=== PATIENT | male | born 1965 | race Caucasian/White ===

== ENCOUNTER 2018-10-20 16:04 | Inpatient (IN) | payer SELFPAY ==
[2018-10-20] MEDS ORDERED: Sodium Chloride 0.9% 10 ML Syringe FLUSH PRN (17:02)
--- NOTE | 2018-10-20 17:24 | EDM.PDOC ---
ED HPI GENERAL MEDICAL PROBLEM - General Stated Complaint: LUMP ON SIDE Time Seen by Provider: 10/20/18 16:40 Source of Information: Reports: Patient History Limitations: Reports: No Limitations - History of Present Illness INITIAL COMMENTS - FREE TEXT/NARRATIVE: Patient comes in to the emergency department with complaint of right lower quadrant abdominal pain started approximately 3 days ago. Patient states that has progressively gotten worst localized to the right lower quadrant. It does radiate along the side. He states he does get nauseated however he has not vomited. He states it's difficult to lay flat her to stretch out due to the discomfort. He does not feel he has had a fever however he feels that he has had chills last couple days. Patient does not remember having any sort of surgical interventions on his appendix or abdominal cavity. He also denies any recent illnesses or infections. He also denies any urinary symptoms including urgency, frequency, discharge, or new sexual partners within last 60 days. Onset: Sudden Quality: Reports: Sharp, Stabbing Severity: Severe Improves with: Reports: Immobilization Worsens with: Reports: Movement Associated Symptoms: Reports: No Other Symptoms - Related Data Allergies Allergy/AdvReac Type Severity Reaction Status Date / Time No Known Allergies Allergy Verified 10/20/18 18:07 Home Meds: Home Meds . [No Known Home Meds] 10/20/18 [History] ED ROS GENERAL - Review of Systems Review Of Systems: See Below Constitutional: Reports: Decreased Appetite HEENT: Reports: No Symptoms Respiratory: Reports: No Symptoms Cardiovascular: Reports: No Symptoms GI/Abdominal: Reports: Abdominal Pain, Anorexia, Nausea. Denies: Melena, Vomiting : Reports: No Symptoms Musculoskeletal: Reports: No Symptoms Skin: Reports: No Symptoms Neurological: Reports: No Symptoms Psychiatric: Reports: No Symptoms Hematologic/Lymphatic: Reports: No Symptoms Immunologic: Reports: No Symptoms ED EXAM, GENERAL - Physical Exam Exam: See Below Exam Limited By: No Limitations General Appearance: Alert, WD/WN, Moderate Distress Neck: Normal Inspection, Supple, Non-Tender, Full Range of Motion Respiratory/Chest: No Respiratory Distress, Lungs Clear, Normal Breath Sounds, No Accessory Muscle Use, Chest Non-Tender Cardiovascular: Normal Peripheral Pulses, Regular Rate, Rhythm, No Edema GI/Abdominal: Distended, Guarding, Rebound, Tender Back Exam: Normal Inspection, Full Range of Motion Extremities: Normal Inspection, Normal Range of Motion, No Pedal Edema, Normal Capillary Refill Neurological: Alert, Oriented Psychiatric: Normal Affect, Normal Mood Skin Exam: Warm, Dry, Intact, Normal Color Course - Orders/Labs/Meds Orders: Active Orders 24 hr Category Date Time Status Sodium Chloride 0.9% [Saline Flush] Med 10/20/18 17:02 Active 10 ml FLUSH ASDIRECTED PRN Peripheral IV Insertion Adult [OM.PC] Stat Oth 10/20/18 17:01 Ordered Medication Orders Ketorolac Tromethamine (Toradol) 30 mg IM Q6H PRN PRN Reason: Pain (moderate 4-6) Ondansetron HCl (Zofran Odt) 4 mg PO Q6H PRN PRN Reason: nausea, able to take PO Sodium Chloride (Saline Flush) 10 ml FLUSH ASDIRECTED PRN PRN Reason: Keep Vein Open Labs: Laboratory Tests 10/20/18 10/20/18 10/20/18 Range/Units 17:05 17:13 17:13 WBC 11.2 H (4.0-10.0) x10^3/uL RBC 4.92 (4.5-6.0) x10^6/uL Hgb 15.0 (14.0-18.0) g/dL Hct 45.0 (40.0-52.0) % MCV 91.5 (78.0-93.0) fL MCH 30.5 (26.0-32.0) pg MCHC 33.3 (32.0-36.0) g/dL RDW Coeff of Katina 13.9 (10.0-15.0) % Plt Count 252 (130-400) x10^3/uL Neut % (Auto) 73.6 (50.0-80.0) % Lymph % (Auto) 17.0 L (25.0-50.0) % Nolan % (Auto) 6.9 (2.0-11.0) % Eos % (Auto) 2.2 (0.0-4.0) % Baso % (Auto) 0.3 (0.2-1.2) % Sodium 142 (136-145) mmol/L Potassium 3.9 (3.5-5.1) mmol/L Chloride 102 (98-107) mmol/L Carbon Dioxide 27 (21-32) mmol/L Anion Gap 16.9 (10-20) mmol/L BUN 18 (7-18) mg/dL Creatinine 1.1 (0.70-1.30) mg/dL Est Cr Clr Drug Dosing TNP Estimated GFR (MDRD) > 60 Glucose 86 (74-106) mg/dL Calcium 9.8 (8.5-10.1) mg/dL Corrected Calcium 9.72 (8.5-10.1) mg/dL Total Bilirubin 0.5 (0.2-1.0) mg/dL AST 16 (15-37) U/L ALT 16 (16-63) U/L Alkaline Phosphatase 110 (46-116) U/L Total Protein 7.8 (6.4-8.2) g/dL Albumin 4.1 (3.4-5.0) g/dL Globulin 3.7 Albumin/Globulin Ratio 1.11 Amylase 51 (25-115) U/L Lipase 105 (73-393) U/L Urine Color Yellow (YELLOW) Urine Appearance Clear (CLEAR) Urine pH 6.0 (5.0-8.0) Ur Specific [place] 1.010 Urine Protein Negative (NEGATIVE) mg/dL Urine Glucose (UA) Negative (NEGATIVE) mg/dL Urine Ketones Negative (NEGATIVE) mg/dL Urine Occult Blood Negative (NEGATIVE) Urine Nitrite Negative (NEGATIVE) Urine Bilirubin Negative (NEGATIVE) Urine Urobilinogen 1.0 (0.2) EU/dL Ur Leukocyte Esterase Negative (NEGATIVE) Meds: Medications Generic Name Dose Route Start Last Admin Trade Name Freq PRN Reason Stop Dose Admin Ketorolac Tromethamine 30 mg 10/20/18 19:58 Toradol IM Q6H PRN Pain (moderate 4-6) Ondansetron HCl 4 mg 10/20/18 19:58 Zofran Odt PO Q6H PRN nausea, able to take PO Sodium Chloride 10 ml 10/20/18 17:02 Saline Flush FLUSH ASDIRECTED PRN Keep Vein Open Discontinued Medications Generic Name Dose Route Start Last Admin Trade Name Freq PRN Reason Stop Dose Admin Ertapenem 1 gm 10/20/18 19:21 10/20/18 19:22 Invanz IVPUSH 10/20/18 19:22 1 gm STAT ONE Administration Hydromorphone HCl 0.5 mg 10/20/18 17:25 10/20/18 20:06 Dilaudid IVPUSH 10/20/18 17:26 Not Given ONETIME ONE Sodium Chloride 1,000 mls @ 1,000 mls/hr 10/20/18 17:26 10/20/18 19:19 Normal Saline IV 10/20/18 18:25 1,000 mls/hr ONETIME ONE Administration Ertapenem 1 gm/ Sodium 100 mls @ 200 mls/hr 10/20/18 19:15 10/20/18 20:07 Chloride IV Not Given Q24H HOWARD Iopamidol 100 ml 10/20/18 18:07 10/20/18 18:09 Isovue-300 (61%) IVPUSH 10/20/18 18:08 100 ml ONETIME ONE Administration Ketorolac Tromethamine 15 mg 10/20/18 19:03 10/20/18 19:16 Toradol IVPUSH 10/20/18 19:04 15 mg ONETIME ONE Administration Ondansetron HCl 4 mg 10/20/18 17:26 10/20/18 19:13 Zofran IVPUSH 10/20/18 17:27 4 mg ONETIME ONE Administration Departure - Departure Time of Disposition: 18:30 Disposition: Admitted As Inpatient 68 Condition: Good Clinical Impression: Colitis - Discharge Information *PRESCRIPTION DRUG MONITORING PROGRAM REVIEWED*: Not Applicable *COPY OF PRESCRIPTION DRUG MONITORING REPORT IN PATIENT SAMANTHA: Not Applicable - My Orders Last 24 Hours: My Active Orders 10/20/18 17:01 Peripheral IV Insertion Adult [OM.PC] Stat 10/20/18 17:02 Sodium Chloride 0.9% [Saline Flush] 10 ml FLUSH ASDIRECTED PRN - Assessment/Plan Last 24 Hours: My Active Orders 10/20/18 17:01 Peripheral IV Insertion Adult [OM.PC] Stat 10/20/18 17:02 Sodium Chloride 0.9% [Saline Flush] 10 ml FLUSH ASDIRECTED PRN Assessment:: 1. abdominal pain 2. Colitis Plan: 1. Labs completed in ER. Results reviewed with the pt 2. CT completed in ER. Results reveal colitis 3. Fluids and zofran given in the ER 4. Patient refusing pain medication initially. Will accept Toradol at 1900. 5. Consultation completed with Dr. Black who feels this patient can be managed by being admitted to acute care with Invanz. If not feeling better within the next 2-3 days it is advisable to send to higher level of care for further surgical management. 6. Pt is agreeable to be admitted. Zhou Navas is agreeable to accept care of the patient to acute care status.
[2018-10-20] MEDS ORDERED: HYDROmorphone 1 MG/ML Syringe IVPUSH ONE (17:25)
[2018-10-20] MEDS ORDERED: Sodium Chloride 0.9% 1,000 ML IV ONE (17:26)
[2018-10-20] MEDS ORDERED: Ondansetron 4 MG/2 ML SDV IVPUSH ONE (17:26)
[2018-10-20 17:39] LABS: ANION GAP 16.9 mmol/L (10-20); CHLORIDE,CL 102 mmol/L (98-107); SODIUM,NA 142 mmol/L (136-145)
[2018-10-20] MEDS ORDERED: Iopamidol 612 MG/ML 100 ML Bottle IVPUSH ONE (18:07)
--- NOTE | 2018-10-20 18:41 | CT ---
[id number] CT/CT Abdomen Pelvis W IV EXAM: CT Abdomen Pelvis W IV CLINICAL DATA: ABDOMEN PAIN. COMPARISON STUDY: None. FINDINGS: Lung bases are clear. Numerous too small to characterize hypodense lesions seen throughout the liver not specifically represent cysts. The spleen, gallbladder, pancreas, adrenal glands, and kidneys are unremarkable. The appendix is visualized and appears normal. There is circumferential thickening of the cecum and proximal ascending colon with surrounding fat stranding and a small amount of free fluid. No pneumoperitoneum or fluid collections are identified. The appendix is visualized and appears normal. Multiple prominent mesenteric lymph nodes especially within the right lower quadrant. Scattered changes of spondylosis the spine. No fracture or osseous lesion. IMPRESSION: 1. Extensive fat infiltration within the right lower quadrant. Additionally, there is a small amount of surrounding free fluid. There is circumferential fat stranding of the cecum and proximal ascending colon. The appendix is visualized and appears normal. These findings are most consistent with focal colitis. Surgical consultation is recommended. Raza Mcpherson DO 10/20/18 [id number] Thank you for allowing us to participate in the care of your patient.
[2018-10-20] MEDS ORDERED: Ketorolac 15 MG/ML SDV IVPUSH ONE (19:03)
[2018-10-20] MEDS ORDERED: Ertapenem 1 GM in Sodium Chloride 0.9% 100 ML IV SCH (19:15)
[2018-10-20] MEDS ORDERED: Ertapenem 1 GM Vial IVPUSH ONE (19:21)
[2018-10-20] MEDS ORDERED: Ketorolac 30 MG/ML SDV IM PRN (19:58)
[2018-10-20] MEDS ORDERED: Ondansetron 4 MG Tab.DIS PO PRN (19:58)
[2018-10-20] MEDS ORDERED: methylPREDNISolone Sodium Succinate 40 MG/1 ML SDV IVPUSH ONE (21:15)
[2018-10-21] MEDS: Sodium Chloride 0.9% 1,000 ML IV SCH ×4 (00:21→23:56)
[2018-10-21] MEDS: HYDROmorphone 1 MG/ML Syringe IVPUSH PRN (00:22)
[2018-10-21] MEDS: Ertapenem 1 GM in Sodium Chloride 0.9% 100 ML IV SCH (07:45)
[2018-10-21] MEDS: methylPREDNISolone Sodium Succinate 40 MG/1 ML SDV IVPUSH SCH (07:46)
[2018-10-21 08:43] LABS: CHLORIDE,CL 108 mmol/L (98-107); SODIUM,NA 143 mmol/L (136-145)
[2018-10-21 08:56] LABS: ANION GAP 15.4 mmol/L (10-20)
--- NOTE | 2018-10-21 12:03 | PCM.PN ---
- General Info Date of Service: 10/21/18 Admission Dx/Problem (Free Text): Acute onset Colitis Abd Pain Dehydration Subjective Update: Overall, patient states his is feeling much better. Continues to have exquisite pain in the RLQ on palpation. No fevers. No N/V/D. No chest pain or SOB. VSS. Ambulating independently. Offers no other specific complaints. Functional Status: Reports: Pain Controlled, Ambulating, Urinating. Denies: Tolerating Diet (NPO) Pain Score: 3 - Review of Systems General: Reports: Fever, Chills Pulmonary: Denies: Shortness of Breath, Cough Cardiovascular: Denies: Chest Pain, Palpitations Gastrointestinal: Reports: Abdominal Pain (RLQ). Denies: Nausea, Vomiting Skin: Reports: No Symptoms Neurological: Reports: No Symptoms - Patient Data Vitals - Most Recent: Last Vital Signs Temp 36.6 C 10/21/18 10:00 Pulse 84 10/21/18 10:00 Resp 20 10/21/18 10:00 BP 113/57 L 10/21/18 10:00 Pulse Ox 97 10/21/18 10:00 Weight - Most Recent: 88.088 kg Lab Results Last 24 Hours: Laboratory Results - last 24 hr 10/20/18 10/20/18 10/20/18 Range/Units 17:05 17:13 17:13 WBC 11.2 H (4.0-10.0) x10^3/uL RBC 4.92 (4.5-6.0) x10^6/uL Hgb 15.0 (14.0-18.0) g/dL Hct 45.0 (40.0-52.0) % MCV 91.5 (78.0-93.0) fL MCH 30.5 (26.0-32.0) pg MCHC 33.3 (32.0-36.0) g/dL RDW Coeff of Katina 13.9 (10.0-15.0) % Plt Count 252 (130-400) x10^3/uL Neut % (Auto) 73.6 (50.0-80.0) % Lymph % (Auto) 17.0 L (25.0-50.0) % Martin % (Auto) 6.9 (2.0-11.0) % Eos % (Auto) 2.2 (0.0-4.0) % Baso % (Auto) 0.3 (0.2-1.2) % Sodium 142 (136-145) mmol/L Potassium 3.9 (3.5-5.1) mmol/L Chloride 102 (98-107) mmol/L Carbon Dioxide 27 (21-32) mmol/L Anion Gap 16.9 (10-20) mmol/L BUN 18 (7-18) mg/dL Creatinine 1.1 (0.70-1.30) mg/dL Est Cr Clr Drug Dosing TNP Estimated GFR (MDRD) > 60 Glucose 86 (74-106) mg/dL Calcium 9.8 (8.5-10.1) mg/dL Corrected Calcium 9.72 (8.5-10.1) mg/dL Total Bilirubin 0.5 (0.2-1.0) mg/dL AST 16 (15-37) U/L ALT 16 (16-63) U/L Alkaline Phosphatase 110 (46-116) U/L Total Protein 7.8 (6.4-8.2) g/dL Albumin 4.1 (3.4-5.0) g/dL Globulin 3.7 Albumin/Globulin Ratio 1.11 Amylase 51 (25-115) U/L Lipase 105 (73-393) U/L Urine Color Yellow (YELLOW) Urine Appearance Clear (CLEAR) Urine pH 6.0 (5.0-8.0) Ur Specific [place] 1.010 Urine Protein Negative (NEGATIVE) mg/dL Urine Glucose (UA) Negative (NEGATIVE) mg/dL Urine Ketones Negative (NEGATIVE) mg/dL Urine Occult Blood Negative (NEGATIVE) Urine Nitrite Negative (NEGATIVE) Urine Bilirubin Negative (NEGATIVE) Urine Urobilinogen 1.0 (0.2) EU/dL Ur Leukocyte Esterase Negative (NEGATIVE) 10/21/18 10/21/18 Range/Units 07:21 07:21 WBC 9.2 (4.0-10.0) x10^3/uL RBC 4.33 L (4.5-6.0) x10^6/uL Hgb 13.1 L D (14.0-18.0) g/dL Hct 40.3 (40.0-52.0) % MCV 93.1 H (78.0-93.0) fL MCH 30.3 (26.0-32.0) pg MCHC 32.5 (32.0-36.0) g/dL RDW Coeff of Katina 13.8 (10.0-15.0) % Plt Count 250 (130-400) x10^3/uL Neut % (Auto) 88.9 H (50.0-80.0) % Lymph % (Auto) 9.0 L (25.0-50.0) % Martin % (Auto) 1.9 L (2.0-11.0) % Eos % (Auto) 0.1 (0.0-4.0) % Baso % (Auto) 0.1 L (0.2-1.2) % Sodium 143 (136-145) mmol/L Potassium 4.4 (3.5-5.1) mmol/L Chloride 108 H (98-107) mmol/L Carbon Dioxide 24 (21-32) mmol/L Anion Gap 15.4 (10-20) mmol/L BUN 19 H (7-18) mg/dL Creatinine 1.0 (0.70-1.30) mg/dL Est Cr Clr Drug Dosing 101.61 Estimated GFR (MDRD) > 60 Glucose 112 H (74-106) mg/dL Calcium 8.8 (8.5-10.1) mg/dL Corrected Calcium (8.5-10.1) mg/dL Total Bilirubin (0.2-1.0) mg/dL AST (15-37) U/L ALT (16-63) U/L Alkaline Phosphatase (46-116) U/L Total Protein (6.4-8.2) g/dL Albumin (3.4-5.0) g/dL Globulin Albumin/Globulin Ratio Amylase (25-115) U/L Lipase (73-393) U/L Urine Color (YELLOW) Urine Appearance (CLEAR) Urine pH (5.0-8.0) Ur Specific [place] Urine Protein (NEGATIVE) mg/dL Urine Glucose (UA) (NEGATIVE) mg/dL Urine Ketones (NEGATIVE) mg/dL Urine Occult Blood (NEGATIVE) Urine Nitrite (NEGATIVE) Urine Bilirubin (NEGATIVE) Urine Urobilinogen (0.2) EU/dL Ur Leukocyte Esterase (NEGATIVE) Med Orders - Current: Current Medications Hydromorphone HCl (Dilaudid) 0.5 mg IVPUSH Q4H PRN PRN Reason: Pain Last Admin: 10/21/18 00:22 Dose: 0.5 mg Sodium Chloride (Normal Saline) 1,000 mls @ 125 mls/hr IV ASDIRECTED HOWARD Last Admin: 10/21/18 07:49 Dose: 125 mls/hr Ertapenem 1 gm/ Sodium (Chloride) 100 mls @ 200 mls/hr IV Q24H [facility] Last Admin: 10/21/18 07:45 Dose: 200 mls/hr Ketorolac Tromethamine (Toradol) 30 mg IM Q6H PRN PRN Reason: Pain (moderate 4-6) Methylprednisolone Sodium Succinate (Solu-Medrol) 40 mg IVPUSH DAILY [facility] Last Admin: 10/21/18 07:46 Dose: 40 mg Ondansetron HCl (Zofran Odt) 4 mg PO Q6H PRN PRN Reason: nausea, able to take PO Sodium Chloride (Saline Flush) 10 ml FLUSH ASDIRECTED PRN PRN Reason: Keep Vein Open Last Admin: 10/21/18 00:28 Dose: 10 ml Discontinued Medications Ertapenem (Invanz) 1 gm IVPUSH STAT ONE Stop: 10/20/18 19:22 Last Admin: 10/20/18 19:22 Dose: 1 gm Hydromorphone HCl (Dilaudid) 0.5 mg IVPUSH ONETIME ONE Stop: 10/20/18 17:26 Last Admin: 10/20/18 20:06 Dose: Not Given Sodium Chloride (Normal Saline) 1,000 mls @ 1,000 mls/hr IV ONETIME ONE Stop: 10/20/18 18:25 Last Admin: 10/20/18 19:19 Dose: 1,000 mls/hr Ertapenem 1 gm/ Sodium (Chloride) 100 mls @ 200 mls/hr IV Q24H [facility] Last Admin: 10/20/18 20:07 Dose: Not Given Iopamidol (Isovue-300 (61%)) 100 ml IVPUSH ONETIME ONE Stop: 10/20/18 18:08 Last Admin: 10/20/18 18:09 Dose: 100 ml Ketorolac Tromethamine (Toradol) 15 mg IVPUSH ONETIME ONE Stop: 10/20/18 19:04 Last Admin: 10/20/18 19:16 Dose: 15 mg Methylprednisolone Sodium Succinate (Solu-Medrol) 40 mg IVPUSH ONETIME ONE Stop: 10/20/18 21:16 Last Admin: 10/21/18 00:22 Dose: 40 mg Ondansetron HCl (Zofran) 4 mg IVPUSH ONETIME ONE Stop: 10/20/18 17:27 Last Admin: 10/20/18 19:13 Dose: 4 mg - Exam Quality Assessment: No: DVT Prophylaxis, Skin Breakdown General: Alert, Oriented, Cooperative, No Acute Distress Lungs: Clear to Auscultation, Normal Respiratory Effort Cardiovascular: Regular Rate, Regular Rhythm GI/Abdominal Exam: Guarding, Rigid, Tender (RLQ), Abnormal Bowel Sounds ( Hyperactive RLQ) Peripheral Pulses: 2+: Radial (L), Radial (R) Skin: Warm, Dry, Intact Neurological: No New Focal Deficit - Problem List Review Problem List Initiated/Reviewed/Updated: Yes - My Orders Last 24 Hours: My Active Orders 10/20/18 21:00 HYDROmorphone [Dilaudid] 0.5 mg IVPUSH Q4H PRN 10/20/18 21:15 Sodium Chloride 0.9% [Normal Saline] 1,000 ml IV ASDIRECTED 10/21/18 08:00 methylPREDNISolone Sod Succ [Solu-MEDROL] 40 mg IVPUSH DAILY 10/21/18 Dinner Advance Diet Instructions [DIET] - Assessment Assessment:: New onset Colitis Abdominal Pain - Plan Plan:: 53 yo male patient with no past medical history was admitted acute yesterday for new onset colitis, abdominal pain, and small free fluid around liver. Dr. Black was consulted by ER provider. Dr. Black recommend admission to acute for pain control, IV abx therapy, and close monitoring. - Continue IV abx - Pain control with Dilaudid - Cont to ambulate - Advance diet as tolerated - SoluMedrol for inflammation - Labs in AM NOTE: Patient was seen and examined by me as an [facility] provider.
[2018-10-22] MEDS: HYDROmorphone 1 MG/ML Syringe IVPUSH PRN (00:01)
[2018-10-22] MEDS: methylPREDNISolone Sodium Succinate 40 MG/1 ML SDV IVPUSH SCH (07:18)
[2018-10-22] MEDS: Ertapenem 1 GM in Sodium Chloride 0.9% 100 ML IV SCH (07:18)
[2018-10-22] MEDS: Sodium Chloride 0.9% 1,000 ML IV SCH ×3 (07:18→23:58)
[2018-10-22 08:14] LABS: CHLORIDE,CL 112 mmol/L (98-107); SODIUM,NA 144 mmol/L (136-145)
[2018-10-22 08:17] LABS: ANION GAP 13.1 mmol/L (10-20)
--- NOTE | 2018-10-22 09:37 | PCM.PN ---
- General Info Date of Service: 10/22/18 Admission Dx/Problem (Free Text): Acute onset Colitis Abd Pain Dehydration Subjective Update: Patient states his pain is much better. He states it is colicky now and waxed and wains. No issues with PO fluids, seems to be tolerating ok. No BM's yet. Urinating ok. No fevers or chills. Advancing diet as tolerated. Functional Status: Reports: Pain Controlled, Tolerating Diet, Ambulating, Urinating. Denies: New Symptoms Pain Score: 0 - Review of Systems General: Denies: Fever, Chills Pulmonary: Denies: Shortness of Breath, Cough Cardiovascular: Denies: Chest Pain, Palpitations Gastrointestinal: Reports: Abdominal Pain. Denies: Nausea, Vomiting Skin: Reports: No Symptoms Neurological: Reports: No Symptoms - Patient Data Vitals - Most Recent: Last Vital Signs Temp 36.3 C 10/22/18 05:46 Pulse 65 10/22/18 05:46 Resp 16 10/22/18 05:46 BP 98/56 L 10/22/18 05:46 Pulse Ox 96 10/22/18 05:46 Weight - Most Recent: 88.088 kg I&O - Last 24 Hours: Intake & Output 10/21/18 10/22/18 10/22/18 22:59 06:59 14:59 Intake Total 2750 1925 Balance 2750 1925 Lab Results Last 24 Hours: Laboratory Results - last 24 hr 10/21/18 10/22/18 10/22/18 Range/Units 07:21 07:31 07:31 WBC 9.2 10.6 H (4.0-10.0) x10^3/uL RBC 4.33 L 3.89 L (4.5-6.0) x10^6/uL Hgb 13.1 L D 11.7 L (14.0-18.0) g/dL Hct 40.3 36.0 L (40.0-52.0) % MCV 93.1 H 92.5 (78.0-93.0) fL MCH 30.3 30.1 (26.0-32.0) pg MCHC 32.5 32.5 (32.0-36.0) g/dL RDW Coeff of Katina 13.8 13.7 (10.0-15.0) % Plt Count 250 224 (130-400) x10^3/uL Neut % (Auto) 88.9 H 74.3 (50.0-80.0) % Lymph % (Auto) 9.0 L 18.9 L (25.0-50.0) % Brooks % (Auto) 1.9 L 6.0 (2.0-11.0) % Eos % (Auto) 0.1 0.6 (0.0-4.0) % Baso % (Auto) 0.1 L 0.2 (0.2-1.2) % Sodium 144 (136-145) mmol/L Potassium 4.1 (3.5-5.1) mmol/L Chloride 112 H (98-107) mmol/L Carbon Dioxide 23 (21-32) mmol/L Anion Gap 13.1 (10-20) mmol/L BUN 20 H (7-18) mg/dL Creatinine 0.8 (0.70-1.30) mg/dL Est Cr Clr Drug Dosing 127.01 mL/min Estimated GFR (MDRD) > 60 Glucose 93 (74-106) mg/dL Calcium 8.5 (8.5-10.1) mg/dL Corrected Calcium 9.62 (8.5-10.1) mg/dL Total Bilirubin 0.4 (0.2-1.0) mg/dL AST 10 L (15-37) U/L ALT 11 L (16-63) U/L Alkaline Phosphatase 66 (46-116) U/L Total Protein 5.3 L (6.4-8.2) g/dL Albumin 2.6 L (3.4-5.0) g/dL Globulin 2.7 Albumin/Globulin Ratio 0.96 Med Orders - Current: Current Medications Hydromorphone HCl (Dilaudid) 0.5 mg IVPUSH Q4H PRN PRN Reason: Pain Last Admin: 10/22/18 00:01 Dose: 0.5 mg Sodium Chloride (Normal Saline) 1,000 mls @ 125 mls/hr IV ASDIRECTED HOWARD Last Admin: 10/22/18 07:18 Dose: 125 mls/hr Ertapenem 1 gm/ Sodium (Chloride) 100 mls @ 200 mls/hr IV Q24H [facility] Last Admin: 10/22/18 07:18 Dose: 200 mls/hr Ketorolac Tromethamine (Toradol) 30 mg IM Q6H PRN PRN Reason: Pain (moderate 4-6) Last Admin: 10/21/18 16:11 Dose: 30 mg Methylprednisolone Sodium Succinate (Solu-Medrol) 40 mg IVPUSH DAILY [facility] Last Admin: 10/22/18 07:18 Dose: 40 mg Ondansetron HCl (Zofran Odt) 4 mg PO Q6H PRN PRN Reason: nausea, able to take PO Sodium Chloride (Saline Flush) 10 ml FLUSH ASDIRECTED PRN PRN Reason: Keep Vein Open Last Admin: 10/21/18 00:28 Dose: 10 ml Discontinued Medications Ertapenem (Invanz) 1 gm IVPUSH STAT ONE Stop: 10/20/18 19:22 Last Admin: 10/20/18 19:22 Dose: 1 gm Hydromorphone HCl (Dilaudid) 0.5 mg IVPUSH ONETIME ONE Stop: 10/20/18 17:26 Last Admin: 10/20/18 20:06 Dose: Not Given Sodium Chloride (Normal Saline) 1,000 mls @ 1,000 mls/hr IV ONETIME ONE Stop: 10/20/18 18:25 Last Admin: 10/20/18 19:19 Dose: 1,000 mls/hr Ertapenem 1 gm/ Sodium (Chloride) 100 mls @ 200 mls/hr IV Q24H [facility] Last Admin: 10/20/18 20:07 Dose: Not Given Iopamidol (Isovue-300 (61%)) 100 ml IVPUSH ONETIME ONE Stop: 10/20/18 18:08 Last Admin: 10/20/18 18:09 Dose: 100 ml Ketorolac Tromethamine (Toradol) 15 mg IVPUSH ONETIME ONE Stop: 10/20/18 19:04 Last Admin: 10/20/18 19:16 Dose: 15 mg Methylprednisolone Sodium Succinate (Solu-Medrol) 40 mg IVPUSH ONETIME ONE Stop: 10/20/18 21:16 Last Admin: 10/21/18 00:22 Dose: 40 mg Ondansetron HCl (Zofran) 4 mg IVPUSH ONETIME ONE Stop: 10/20/18 17:27 Last Admin: 10/20/18 19:13 Dose: 4 mg - Exam Quality Assessment: No: DVT Prophylaxis, Skin Breakdown General: Alert, Oriented, Cooperative, No Acute Distress Lungs: Clear to Auscultation, Normal Respiratory Effort Cardiovascular: Regular Rate, Regular Rhythm GI/Abdominal Exam: Soft, Non-Tender, Abnormal Bowel Sounds (Hyperactive) Peripheral Pulses: 2+: Radial (L), Radial (R) Skin: Warm, Dry, Intact Neurological: No New Focal Deficit - Problem List Review Problem List Initiated/Reviewed/Updated: Yes - My Orders Last 24 Hours: My Active Orders 10/21/18 Dinner Advance Diet Instructions [DIET] - Assessment Assessment:: New onset Colitis Abdominal Pain - Plan Plan:: 53 yo male patient with no past medical history was admitted acute yesterday for new onset colitis, abdominal pain, and small free fluid around liver. Dr. Black was consulted by ER provider. Dr. Black recommend admission to acute for pain control, IV abx therapy, and close monitoring. - Continue IV abx - Pain control with Dilaudid - Cont to ambulate - Advance diet as tolerated - SoluMedrol for inflammation - Labs in AM - Anticipate discharge tomorrow as long as patient stays stable NOTE: Patient was seen and examined by me as an [facility] provider.
[2018-10-23] MEDS: HYDROmorphone 1 MG/ML Syringe IVPUSH PRN (04:52)
[2018-10-23 07:10] LABS: CHLORIDE,CL 113 mmol/L (98-107); SODIUM,NA 145 mmol/L (136-145)
[2018-10-23 07:13] LABS: ANION GAP 12.8 mmol/L (10-20)
[2018-10-23] MEDS: methylPREDNISolone Sodium Succinate 40 MG/1 ML SDV IVPUSH SCH (07:47)
[2018-10-23] MEDS: Ertapenem 1 GM in Sodium Chloride 0.9% 100 ML IV SCH (07:49)
[2018-10-23] MEDS: Sodium Chloride 0.9% 1,000 ML IV SCH (07:54)
[2018-10-23] MEDS ORDERED: Iopamidol 612 MG/ML 100 ML Bottle IVPUSH ONE (11:46)
--- NOTE | 2018-10-23 12:44 | CT ---
[id number] CT/CT Abdomen Pelvis W IV EXAM: CT Abdomen Pelvis W IV CLINICAL DATA: ABDOMINAL PAIN, COLITIS. COMPARISON STUDY: October 20, 2018. FINDINGS: Small bilateral pleural effusions with associated compressive atelectasis. Since the prior study there is been interval development of periportal edema. There are multiple likely cysts within the liver. No definite suspicious lesions are identified at this time. The spleen, pancreas, gallbladder, adrenal glands and kidneys are unremarkable. There is asymmetric thickening of the cecum with extensive surrounding fat stranding and increased free fluid. No drainable fluid collection at this time. No free air. The appendix is visualized and appears normal. There are multiple abnormal lymph nodes seen within the right lower quadrant. For example there is a mesenteric lymph node measuring 1.6 cm in short axis (series 2 image 94). Scattered changes of spondylosis the spine. No fracture or osseous lesion. IMPRESSION: 1. Asymmetric thickening of the cecum concerning for a mass. Additionally there is significant fat stranding and increased free fluid when compared to the prior study. These findings are concerning for contained perforation of the cecum. There is no free air or drainable fluid collection at this time. Surgical consultation is recommended. 2. Periportal edema is likely reactive secondary to the above. 3. Multiple prominent mesenteric lymph nodes some of which appear to demonstrate necrosis. These are concerning for metastatic disease. Findings were discussed with the ordering provider at time of dictation. Raza Mcpherson DO 10/23/18 1242 Thank you for allowing us to participate in the care of your patient.
--- NOTE | 2018-10-23 14:10 | PCM.DCSUM1 ---
Discharge Summary - Hospital Course HPI Initial Comments: Patient comes in to the emergency department with complaint of right lower quadrant abdominal pain started approximately 3 days ago. Patient states that has progressively gotten worst localized to the right lower quadrant. It does radiate along the side. He states he does get nauseated however he has not vomited. He states it's difficult to lay flat her to stretch out due to the discomfort. He does not feel he has had a fever however he feels that he has had chills last couple days. Patient does not remember having any sort of surgical interventions on his appendix or abdominal cavity. He also denies any recent illnesses or infections. He also denies any urinary symptoms including urgency, frequency, discharge, or new sexual partners within last 60 days. Diagnosis: Stroke: No Modified [place] Scale: No Symptoms at All Modified [place] Scale Score: 0 - Discharge Data Discharge Date: 10/23/18 Discharge Disposition: DC/Tfer to Acute Hospital 02 Condition: Good - Discharge Diagnosis/Problem(s) (1) Mass of cecum SNOMED Code(s): 543538808, [id number] ICD Code: K63.9 - DISEASE OF INTESTINE, UNSPECIFIED Status: Acute Priority: High Current Visit: Yes Onset Date: ~10/20/18 (2) Colitis SNOMED Code(s): 70244673 ICD Code: K52.9 - NONINFECTIVE GASTROENTERITIS AND COLITIS, UNSPECIFIED Status: Acute Priority: High Current Visit: Yes - Patient Summary/Data Labs Pending at D/C: None Hospital Course: Patient was admitted a couple days ago for abdominal pain and colitis. Patient started on Invanz and IVF and kept NPO. Fairly uneventful over the weekend. Was able to advance diet slowly, but today RLQ pain is worse. Repeat CT scan showed worsening cecal mass, contained fluid, and prominent lymph nodes. VSS. No fevers. No BM's since admit. Urination ok. - Patient Instructions Diet: NPO Activity: Bedrest - Discharge Plan *PRESCRIPTION DRUG MONITORING PROGRAM REVIEWED*: Not Applicable *COPY OF PRESCRIPTION DRUG MONITORING REPORT IN PATIENT SAMANTHA: Not Applicable Home Medications: Home Meds . [No Known Home Meds] 10/20/18 [History] Forms: Interfacility Transfer EMTALA Referrals: Zhou Navas NP [Nurse Practitioner] - - Discharge Summary/Plan Comment DC Time >30 min.: Yes Discharge Summary/Plan Comment: Case discussed with Dr. Black, Surgery. Patient will be transferred to [facility] for further evaluation of cecal mass and possible treatment. Patient will be sent via BLS ground. Patient is aware of POC and wishes to proceed. - General Info Date of Service: 10/23/18 Admission Dx/Problem (Free Text: Acute onset Colitis Abd Pain Dehydration Cecal Mass Subjective Update: Patient states his pain is much better. He states it is colicky now and waxed and wains. No issues with PO fluids, seems to be tolerating ok. No BM's yet. Urinating ok. No fevers or chills. Advancing diet as tolerated. Today, po intake worsened pain. Functional Status: Reports: Pain Controlled, Ambulating. Denies: Tolerating Diet, Urinating, New Symptoms Numeric/FACES Score: 0 - Review of Systems General: Denies: Fever, Chills Pulmonary: Denies: Shortness of Breath, Cough Cardiovascular: Denies: Chest Pain, Palpitations Gastrointestinal: Reports: Abdominal Pain. Denies: Nausea, Vomiting Skin: Reports: No Symptoms Neurological: Reports: No Symptoms - Patient Data Vitals - Most Recent: Last Vital Signs Temp 37.0 C 10/23/18 13:56 Pulse 69 10/23/18 13:56 Resp 18 10/23/18 13:56 BP 130/104 H 10/23/18 13:56 Pulse Ox 98 10/23/18 13:56 Weight - Most Recent: 88.088 kg I&O - Last 24 hours: Intake & Output 10/22/18 10/23/18 10/23/18 22:59 06:59 14:59 Intake Total 1860 1915 150 Balance 1860 1915 150 Lab Results - Last 24 hrs: Laboratory Results - last 24 hr 10/23/18 10/23/18 Range/Units 06:30 06:30 WBC 9.7 (4.0-10.0) x10^3/uL RBC 3.80 L (4.5-6.0) x10^6/uL Hgb 11.5 L (14.0-18.0) g/dL Hct 35.2 L (40.0-52.0) % MCV 92.6 (78.0-93.0) fL MCH 30.3 (26.0-32.0) pg MCHC 32.7 (32.0-36.0) g/dL RDW Coeff of Katina 14.0 (10.0-15.0) % Plt Count 227 (130-400) x10^3/uL Neut % (Auto) 72.3 (50.0-80.0) % Lymph % (Auto) 20.7 L (25.0-50.0) % [place] % (Auto) 6.4 (2.0-11.0) % Eos % (Auto) 0.4 (0.0-4.0) % Baso % (Auto) 0.2 (0.2-1.2) % Sodium 145 (136-145) mmol/L Potassium 3.8 (3.5-5.1) mmol/L Chloride 113 H (98-107) mmol/L Carbon Dioxide 23 (21-32) mmol/L Anion Gap 12.8 (10-20) mmol/L BUN 15 (7-18) mg/dL Creatinine 0.8 (0.70-1.30) mg/dL Est Cr Clr Drug Dosing 127.01 mL/min Estimated GFR (MDRD) > 60 Glucose 89 (74-106) mg/dL Calcium 8.3 L (8.5-10.1) mg/dL Med Orders - Current: Current Medications Hydromorphone HCl (Dilaudid) 0.5 mg IVPUSH Q4H PRN PRN Reason: Pain Last Admin: 10/23/18 04:52 Dose: 0.5 mg Sodium Chloride (Normal Saline) 1,000 mls @ 125 mls/hr IV ASDIRECTED [facility] Last Admin: 10/23/18 07:54 Dose: 125 mls/hr Ertapenem 1 gm/ Sodium (Chloride) 100 mls @ 200 mls/hr IV Q24H [facility] Last Admin: 10/23/18 07:49 Dose: 200 mls/hr Ketorolac Tromethamine (Toradol) 30 mg IM Q6H PRN PRN Reason: Pain (moderate 4-6) Last Admin: 10/21/18 16:11 Dose: 30 mg Methylprednisolone Sodium Succinate (Solu-Medrol) 40 mg IVPUSH DAILY [facility] Last Admin: 10/23/18 07:47 Dose: 40 mg Ondansetron HCl (Zofran Odt) 4 mg PO Q6H PRN PRN Reason: nausea, able to take PO Sodium Chloride (Saline Flush) 10 ml FLUSH ASDIRECTED PRN PRN Reason: Keep Vein Open Last Admin: 10/21/18 00:28 Dose: 10 ml Discontinued Medications Ertapenem (Invanz) 1 gm IVPUSH STAT ONE Stop: 10/20/18 19:22 Last Admin: 10/20/18 19:22 Dose: 1 gm Hydromorphone HCl (Dilaudid) 0.5 mg IVPUSH ONETIME ONE Stop: 10/20/18 17:26 Last Admin: 10/20/18 20:06 Dose: Not Given Sodium Chloride (Normal Saline) 1,000 mls @ 1,000 mls/hr IV ONETIME ONE Stop: 10/20/18 18:25 Last Admin: 10/20/18 19:19 Dose: 1,000 mls/hr Ertapenem 1 gm/ Sodium (Chloride) 100 mls @ 200 mls/hr IV Q24H [facility] Last Admin: 10/20/18 20:07 Dose: Not Given Iopamidol (Isovue-300 (61%)) 100 ml IVPUSH ONETIME ONE Stop: 10/20/18 18:08 Last Admin: 10/20/18 18:09 Dose: 100 ml Iopamidol (Isovue-300 (61%)) 100 ml IVPUSH ONETIME ONE Stop: 10/23/18 11:47 Last Admin: 10/23/18 11:57 Dose: 100 ml Ketorolac Tromethamine (Toradol) 15 mg IVPUSH ONETIME ONE Stop: 10/20/18 19:04 Last Admin: 10/20/18 19:16 Dose: 15 mg Methylprednisolone Sodium Succinate (Solu-Medrol) 40 mg IVPUSH ONETIME ONE Stop: 10/20/18 21:16 Last Admin: 10/21/18 00:22 Dose: 40 mg Ondansetron HCl (Zofran) 4 mg IVPUSH ONETIME ONE Stop: 10/20/18 17:27 Last Admin: 10/20/18 19:13 Dose: 4 mg - Exam Quality Assessment: Denies: Skin Breakdown General: Reports: Alert, Oriented, Cooperative, No Acute Distress Lungs: Reports: Clear to Auscultation, Normal Respiratory Effort Cardiovascular: Reports: Regular Rate, Regular Rhythm GI/Abdominal Exam: Guarding, Rigid, Tender (RLQ), Abnormal Bowel Sounds ( Hypoactive) Skin: Reports: Warm, Dry, Intact Neurological: Reports: No New Focal Deficit
== END 2018-10-23 13:55 | disposition short-term general hospital (02) | DRG 392 ==
LOC: VM.ED 16:04 → VM.MS 19:12
PROVIDERS: ADMIT Nurse Practitioner Family; ATTEND Nurse Practitioner Family
DX: K52.9 Noninfective gastroenteritis and colitis, unspecified (principal); K63.9 Disease of intestine, unspecified; E86.0 Dehydration
CPT/HCPCS: 36415; 74177; 80048; 80053; 81003; 82150; 83690; 85025; 96361; 96374; 96375; 99285-25; J1170; J1335; J1885; J2405; J2920; J7030; J7050; Q9967